=== PATIENT | female | born 1935 | race Caucasian/White ===

== ENCOUNTER 2024-09-23 15:49 | Inpatient (IN) | payer MEDICARE, OTHER ==
[~2024-09-23] VITALS: Ht 157.5 cm; Wt 73.9 kg
[2024-09-23 15:50] VITALS: BP 115/68
[2024-09-23] MEDS ORDERED: CHOL500062 PO (16:07)
[2024-09-23] MEDS ORDERED: BISA10SU61 RC (16:07)
[2024-09-23] MEDS ORDERED: MEMA10TA PO (16:07)
[2024-09-23] MEDS ORDERED: AMLO2.5T2 PO (16:07)
[2024-09-23] MEDS ORDERED: DOCU100T2 PO (16:07)
[2024-09-23] MEDS ORDERED: EXELON PO (16:07)
[2024-09-23] MEDS ORDERED: ACET325C7 PO (16:07)
[2024-09-23] MEDS ORDERED: SACC250C PO (16:07)
[2024-09-23] MEDS ORDERED: MAGN400O6 PO (16:07)
[2024-09-23] MEDS ORDERED: LORA10CA PO (16:07)
[2024-09-23] MEDS ORDERED: CALC-494 PO (16:07)
[2024-09-23] MEDS ORDERED: ESCI5TAB PO (16:07)
[2024-09-23] MEDS ORDERED: MULT-594 PO (16:07)
[2024-09-23 16:47] LABS: PLATELET COUNT (AUTO) 306 K/uL (179-408); RED BLOOD CELL COUNT(AUTO) 4.90 MIL/uL (3.63-4.92); RED CELL DISTRIBUTION WIDTH 14.7 % (12.3-17.7); WHITE BLOOD COUNT (AUTO) 7.4 K/uL (3.8-11.8)
[2024-09-23 16:59] LABS: CREATININE 1.3 mg/dL (0.6-1.3); SODIUM SERUM 140 mmol/L (136-145); UREA NITROGEN, BLOOD 21 mg/dL (7-18)
[2024-09-23 17:00] LABS: ETHANOL < 3 MG/DL (0-10)
[2024-09-23 17:05] LABS: ASPARTATE AMINOTRANSFERASE 15 U/L (15-37); TOTAL PROTEIN, SERUM 7.9 g/dL (6.4-8.2)
[2024-09-23 17:32] LABS: *BILIRUBIN,URIN NEGATIVE (NEGATIVE); *BLOOD, URINE 2+ (NEGATIVE); *CLARITY,URINE CLEAR (CLEAR); *COLOR,URINE YELLOW (YELLOW); *KETONES,URINE NEGATIVE (NEGATIVE); *PROTEIN,URINE NEGATIVE (NEGATIVE); *UROBILINOGEN,URINE 0.2 E.U./dl (NORMAL); LEUKOCYTE ESTERASE ,URINE 1+ (NEGATIVE); NITRITE, URINE NEGATIVE (NEGATIVE); UGLUCOSE NEGATIVE (NEGATIVE)
[2024-09-23 17:41] LABS: *AMPHETAMINE, URINE NEGATIVE (NEGATIVE); *BARBITURATE, URINE NEGATIVE (NEGATIVE); *BENZODIAZEPINE, URINE NEGATIVE (NEGATIVE); *CANNABINOID, URINE NEGATIVE (NEGATIVE); *COCCAINE, URINE NEGATIVE (NEGATIVE); *OPIATE, URINE NEGATIVE (NEGATIVE); *PHENCYCLIDINE SCREEN,URINE NEGATIVE (NEGATIVE); FENTANYL, URINE NEGATIVE (NEGATIVE)
[2024-09-23] MEDS ORDERED: HALOPERIDOL LACTATE 5 MG/1 ML VIAL ONE (21:05)
[2024-09-23] MEDS ORDERED: LORAZEPAM 2 MG/1 ML VIAL ONE (21:06)
[2024-09-23] MEDS: HALOPERIDOL LACTATE 5 MG/1 ML VIAL IM ONE (21:07)
[2024-09-23] MEDS: LORAZEPAM 2 MG/1 ML VIAL IM ONE (21:07)
[2024-09-23 21:23] VITALS: BP 128/66; TEMP 98.6; O2SAT 99
[2024-09-23] MEDS ORDERED: TEMAZEPAM 7.5 MG CAPSULE PO PRN (21:30)
[2024-09-23] MEDS ORDERED: MAG HYDROX/AL HYDROX/SIMETH 30 ML LIQUID UDC PO PRN (21:30)
[2024-09-23] MEDS: BLOOD SUGAR DIAGNOSTIC 1 EACH STRIP VI ONE (21:30)
[2024-09-24] MEDS: TEMAZEPAM 7.5 MG CAPSULE PO PRN (01:21)
[2024-09-24] MEDS: LORAZEPAM 1 MG TABLET PO PRN ×2 (06:55→23:07)
[2024-09-24] MEDS: LORAZEPAM 2 MG/1 ML VIAL IM ONE (08:13)
[2024-09-24] MEDS: HALOPERIDOL LACTATE 5 MG/1 ML VIAL IM ONE (08:13)
[2024-09-24] MEDS: diphenhydrAMINE 50 MG/1 ML VIAL IM ONE (08:13)
[2024-09-24 08:23] LABS: GLUCOSE FASTING 116.0 mg/dL (70-115)
[2024-09-24 08:51] VITALS: BP 117/75; TEMP 98.6; O2SAT 99
[2024-09-24] MEDS ORDERED: MAGNESIUM HYDROXIDE 30 ML LIQUID UDC PO PRN (13:30)
[2024-09-24] MEDS ORDERED: BISACODYL 10 MG SUPP.RECT RC PRN (13:30)
[2024-09-24 16:19] VITALS: BP 128/70; TEMP 98; O2SAT 99
[2024-09-24] MEDS: CALCIUM CARBONATE 500 MG TABLET PO SCH (16:45)
[2024-09-24 20:03] VITALS: BP 169/75; TEMP 98.3; O2SAT 98
[2024-09-24] MEDS: QUETIAPINE FUMARATE 25 MG TABLET PO SCH (20:15)
[2024-09-25] MEDS: TEMAZEPAM 15 MG CAPSULE PO PRN (02:04)
[2024-09-25] MEDS: CHOLECALCIFEROL 1,000 UNIT TABLET PO SCH (08:20)
[2024-09-25] MEDS: LORATADINE 10 MG TABLET PO SCH (08:20)
[2024-09-25] MEDS: ESCITALOPRAM OXALATE 10 MG TABLET PO SCH (08:20)
[2024-09-25] MEDS: DOCUSATE SODIUM 100 MG CAPSULE PO SCH (08:20)
[2024-09-25] MEDS: MULTIVITAMINS,THERAPEUTIC TABLET PO SCH (08:20)
[2024-09-25] MEDS: CULTURELLE CAPSULE PO SCH (08:22)
[2024-09-25] MEDS: AMLODIPINE 2.5 MG TABLET PO SCH (08:22)
[2024-09-25 08:40] VITALS: BP 136/70; TEMP 97.6; O2SAT 97
[2024-09-25] MEDS ORDERED: Medication Not On Formulary EA (Multivitamins (Multivitamin) 1 EACH) PO SCH (09:00)
[2024-09-25] MEDS ORDERED: Medication Not On Formulary EA (Saccharomyces Boulardii (Florastor) 250 MG) PO SCH ×2 (09:00)
[2024-09-25] MEDS ORDERED: CHOLECALCIFEROL 125 MCG PO SCH (09:00)
[2024-09-25 15:50] VITALS: BP 158/65; O2SAT 96
[2024-09-25] MEDS: ENSURE ENLIVE (VAN) 240 ML LIQUID PO SCH (17:37)
[2024-09-25 17:55] VITALS: BP 142/92; O2SAT 97
[2024-09-25 20:00] VITALS: BP 135/53; TEMP 98.3; O2SAT 94
[2024-09-26 09:41] VITALS: BP 132/60; TEMP 98.2; O2SAT 99
[2024-09-26 15:42] VITALS: BP 147/85; TEMP 98; O2SAT 96
[2024-09-26] MEDS: ACETAMINOPHEN 325 MG TABLET PO PRN (15:54)
[2024-09-26 20:00] VITALS: BP 130/56; TEMP 97.6; O2SAT 96
[2024-09-27 07:42] VITALS: BP 136/63; TEMP 98; O2SAT 98
[2024-09-27 15:46] VITALS: BP 126/59; TEMP 98; O2SAT 96
[2024-09-27 20:00] VITALS: BP 121/56; TEMP 97.9; O2SAT 92
[2024-09-28 07:44] VITALS: BP 124/52; TEMP 98.2; O2SAT 96
[2024-09-28] MEDS: diphenhydrAMINE 50 MG/1 ML VIAL IM ONE (15:02)
[2024-09-28] MEDS: HALOPERIDOL LACTATE 5 MG/1 ML VIAL IM ONE (15:03)
[2024-09-28] MEDS: LORAZEPAM 2 MG/1 ML VIAL IM ONE (15:03)
[2024-09-28 15:32] VITALS: BP 117/53; TEMP 98; O2SAT 94
[2024-09-28 20:00] VITALS: BP 133/63; TEMP 98.4; O2SAT 96
[2024-09-29 08:04] VITALS: BP 118/47; TEMP 98; O2SAT 94
[2024-09-29] MEDS: ESCITALOPRAM OXALATE 10 MG TABLET PO SCH (08:37)
[2024-09-29 16:43] VITALS: BP 126/51; TEMP 98.4; O2SAT 96
[2024-09-29 20:00] VITALS: BP 123/57; TEMP 98.2; O2SAT 97
[2024-09-29] MEDS: QUETIAPINE FUMARATE 25 MG TABLET PO SCH (21:04)
[2024-09-30] MEDS: MAGNESIUM HYDROXIDE 30 ML LIQUID UDC PO PRN (05:55)
[2024-09-30 08:12] VITALS: BP 130/85; TEMP 98.4; O2SAT 96
[2024-09-30] MEDS: LORAZEPAM 2 MG/1 ML VIAL IM STA (14:59)
[2024-09-30] MEDS: diphenhydrAMINE 50 MG/1 ML VIAL IM STA (14:59)
[2024-09-30] MEDS: HALOPERIDOL LACTATE 5 MG/1 ML VIAL IM STA (14:59)
[2024-09-30 16:37] VITALS: BP 127/78; TEMP 98.4; O2SAT 96
[2024-09-30 20:00] VITALS: BP 158/60; TEMP 98.1; O2SAT 96
[2024-10-01] MEDS: TRAMADOL HCL 50 MG TABLET PO PRN (04:09)
[2024-10-01 08:04] VITALS: BP 142/92; TEMP 98.4; O2SAT 96
[2024-10-01] MEDS: HALOPERIDOL LACTATE 5 MG/1 ML VIAL IM STA (10:34)
[2024-10-01] MEDS: LORAZEPAM 2 MG/1 ML VIAL IM STA (10:34)
[2024-10-01] MEDS: diphenhydrAMINE 50 MG/1 ML VIAL IM STA (10:34)
[2024-10-01 16:28] VITALS: BP 139/78; TEMP 98.4; O2SAT 96
[2024-10-01 20:00] VITALS: BP 143/54; TEMP 98.7; O2SAT 95
[2024-10-01] MEDS: QUETIAPINE FUMARATE 25 MG TABLET PO SCH (21:11)
[2024-10-02 07:37] VITALS: BP 143/62; TEMP 97.5; O2SAT 95
[2024-10-02 16:00] VITALS: BP 141/66; TEMP 97.7; O2SAT 95
[2024-10-02 20:00] VITALS: BP 139/52; TEMP 97.6; O2SAT 95
[2024-10-03 01:33] LABS: *BILIRUBIN,URIN NEGATIVE (NEGATIVE); *BLOOD, URINE NEGATIVE (NEGATIVE); *CLARITY,URINE CLEAR (CLEAR); *COLOR,URINE YELLOW (YELLOW); *KETONES,URINE TRACE (NEGATIVE); *PROTEIN,URINE NEGATIVE (NEGATIVE); *UROBILINOGEN,URINE 0.2 E.U./dl (NORMAL); LEUKOCYTE ESTERASE ,URINE TRACE (NEGATIVE); NITRITE, URINE NEGATIVE (NEGATIVE); UGLUCOSE NEGATIVE (NEGATIVE)
[2024-10-03 01:47] LABS: SQUAMOUS EPITHELIAL CELL,UR MODERATE /HPF (NONE SEEN)
[2024-10-03 08:17] VITALS: BP 132/57; TEMP 98.2; O2SAT 98
[2024-10-03 15:50] VITALS: BP 110/47; TEMP 98; O2SAT 98
[2024-10-03] MEDS: diphenhydrAMINE 50 MG/1 ML VIAL IM ONE (16:49)
[2024-10-03] MEDS: LORAZEPAM 2 MG/1 ML VIAL IM ONE (16:50)
[2024-10-03] MEDS: HALOPERIDOL LACTATE 5 MG/1 ML VIAL IM ONE (16:51)
[2024-10-03 20:03] VITALS: BP 124/51; TEMP 98.1; O2SAT 98
[2024-10-04 09:33] VITALS: BP 137/61
== END 2024-10-04 10:45 | DRG 885 ==
LOC: ER 15:49 → GPS 20:47
PROVIDERS: ADMIT Psychiatry & Neurology Psychiatry; ATTEND Student in an Organized Health Care Education/Training Program
DX: F29 Unspecified psychosis not due to a substance or known physiological condition (principal); F02.811 Dementia in other diseases classified elsewhere, unspecified severity, with agitation; E44.1 Mild protein-calorie malnutrition; F02.83 Dementia in other diseases classified elsewhere, unspecified severity, with mood disturbance; G30.9 Alzheimer's disease, unspecified; E86.0 Dehydration; F20.0 Paranoid schizophrenia; Z86.16 Personal history of COVID-19; M15.9 Polyosteoarthritis, unspecified; F32.9 Major depressive disorder, single episode, unspecified; Z91.148 Patient's other noncompliance with medication regimen for other reason; Z79.899 Other long term (current) drug therapy; M48.02 Spinal stenosis, cervical region
CPT/HCPCS: 36415; 73501; 84443; 85025; 87077; 87086; 93005; A4606; A4663; G0480; J1200; J1630; J2060